=== PATIENT | female | born 1940 | race Caucasian/White ===

== ENCOUNTER 2021-08-15 13:42 | Inpatient (IN) | payer MEDICARE, BC ==
[~2021-08-15] VITALS: Ht 152.4 cm; Wt 36.7 kg
[2021-08-15] MEDS ORDERED: MAG HYDROX/AL HYDROX/SIMETH 30 ML UDC PO PRN (23:00)
[2021-08-15] MEDS ORDERED: LORAZEPAM 0.5 MG TABLET PO PRN (23:00)
[2021-08-15] MEDS ORDERED: BLOOD SUGAR DIAGNOSTIC 1 EACH STRIP IN ONE (23:00)
[2021-08-15] MEDS ORDERED: ACETAMINOPHEN 325 MG TABLET PO PRN (23:00)
[2021-08-15] MEDS ORDERED: MAGNESIUM HYDROXIDE 30 ML UDC PO PRN (23:00)
[2021-08-15 23:15] VITALS: BP 146/66
--- NOTE | 2021-08-15 23:35 | NUR ---
GPS REPRESENTATIVE GOVERNMENT RELATIONS NOTE RECEIVED PATIENT FROM [facility]. PATIENT ARRIVED AT UNIT ON 08/15/2021 2245 VIA STRETCHER WITH 2 EMT, PATIENT ADMITTED ON A 5150 HOLD FOR GRAVELY DISABLED. PER 5150 HOLD, PATIENT BELIEVES HER SIGNIFICANT OTHER/DPOA ROLANDA IS TRYING TO TAKE OVER HER LIFE. SHE HAS BEEN FLEEING THE HOUSE BECAUSE SHE DOES NOT WANT TO BE THERE WITH HIM, SHE IS PARANOID ABOUT HIS INVOLVEMENT HER CAREGIVER AND PRIMARY SUPPORT. ROLANDA HAS PROVEN TO BE SUPPORTIVE AND HER FEAR IS BASED IN PARANOID DELUSIONS. SHE CAN NOT EXPLAIN HOW SHE WOULD CARE FOR HERSELF WITHOUT HIS ASSISTANCE AND SHE CAN NOT ENGAGE IN LOGICAL DISCUSSION ABOUT HOW TO CARE FOR HERSELF. UPON FACE TO FACE ASSESSMENT, PATIENT IS A & O X 1, CONFUSED, FORGETFUL, PARANOID, DELUSIONAL, DISORGANIZED, DISORIENTED, UNCOOPERATIVE/COOPERATIVE, RESTLESS, EASILY IRRITABLE, REDIRECTABLE AND COOPERATIVE AT THIS TIME. NEEDS FREQUENT REDIRECTIONS AT ALL TIMES. HAS NO S/S OR C/O PAIN, NO S/S OF APPARENT DISTRESS, BREATHING IS UNLABORED WITH EQUAL RISE AND FALL OF THE CHEST. SATURATION AT 97% ON ROOM AIR. PATIENT DENIES SUICIDAL AND/OR HOMICIDAL IDEATIONS AT THIS TIME. AMBULATORY WITH STAND BY ASSIST ONLY, HIGH FALL RISK, UNSTEADY GAIT. HAS INCONTINENCE EPISODES. USES PULL UPS. PATIENT NOTED TO BE UNDER WEIGHT, DIETARY CONSULT ORDERED. OFFERED PO FLUIDS & TOLERATED WELL. PATIENT ADVISED OF HER HOLD, PATIENT RIGHTS BOOKLET GIVEN. THE PATIENT IS UNDER THE PSYCHIATRIC CARE OF DR LEBLANC AND MEDICAL CARE OF MADHURI WOODS. PATIENT BELONGINGS WERE INVENTORIED AND CHECKED FOR CONTRABAND, PLACED IN LOCKER. PATIENT SKIN ASSESSMENT COMPLETED, PICTURES PLACED IN CHART. PATIENT REFUSED TO SIGN CONSENT FORMS, CONFUSED AND WANTED TO REST/SLEEP. PATIENT IS UNABLE TO PROVIDE MUCH INFORMATION DUE TO CONFUSION, POOR HISTORIAN. PATIENT IS UNABLE TO PROVIDE INFORMATION ABOUT PNEUMOCOCCAL AND COVID VACCINE. PATIENT ORIENTATED TO ROOM, FLOOR, AND STAFF WITH ALL QUESTIONS ANSWERED. PATIENT EDUCATED ON THE USE OF THE CALL POZO, SIDE RAILS ARE UP X 2 FOR SAFETY, BED IS LOW AND LOCKED. BED ALARM ON. I WILL CONTINUE TO MONITOR THIS PATIENT Q15 MINUTES WITH THE HELP OF STAFF TO MAINTAIN SAFETY.
[2021-08-16] MEDS ORDERED: LIDO700A30 TP (00:38)
[2021-08-16] MEDS ORDERED: LATA2.5D15 EACHEYE (00:38)
[2021-08-16] MEDS ORDERED: AMLO-212 PO (00:38)
[2021-08-16] MEDS ORDERED: TIMO5SOL11 EACHEYE (00:38)
[2021-08-16] MEDS ORDERED: LEVO25TA7 PO (00:38)
[2021-08-16] MEDS ORDERED: ESCI5TAB PO (00:38)
[2021-08-16] MEDS ORDERED: CEPH500C2 PO (00:38)
--- NOTE | 2021-08-16 01:30 | NUR ---
RN NOTE NOTIFIED MADH[facility] WOODS TO RECONCILE HOME MEDS.
[2021-08-16] MEDS ORDERED: Z GUARD REMEDY 4 OZ OINT TP PRN (03:00)
--- NOTE | 2021-08-16 05:47 | NUR ---
RN NOTE PATIENT HAS BEEN SLEEPING WELL SINCE ADMITTED TO [facility].
--- NOTE | 2021-08-16 06:51 | NUR ---
RN NOTE PLAYGROUND EQUIPMENT ERECTOR WAS ABLE TO DRAW BLOOD FOR AM LABS. WAITING FOR LAB RESULTS
--- NOTE | 2021-08-16 07:08 | NUR ---
RN NOTE CALLED ROLANDA JIMENEZ, MANAGER [employer]/PARTNER AT [phone] AND INFORMED HIM ABOUT PATIENT'S ADMISSION AT [facility] UNIT AND PROVIDED UNIT PHONE NUMBER.
[2021-08-16 07:55] LABS: ALBUMIN 3.1 g/dL (3.4-5.0); BILIRUBIN,TOTAL 0.5 mg/dL (0.2-1.0); CALCIUM, SERUM 8.6 mg/dL (8.5-10.1); CREATININE 0.8 mg/dL (0.6-1.3); POTASSIUM 4.2 mmol/L (3.5-5.1); TOTAL PROTEIN, SERUM 5.8 g/dL (6.4-8.2)
[2021-08-16 08:00] VITALS: BP 162/92
[2021-08-16 08:16] LABS: CHOLESTEROL 176 mg/dL (<200); HDL CHOLESTEROL 63 mg/dL (40-60); LDL 96 mg/dL (0-99); TRIGLYCERIDES 51 mg/dL (30-150)
[2021-08-16] MEDS: Z GUARD REMEDY 2 OZ OINT TP SCH (09:38)
--- NOTE | 2021-08-16 10:00 | NUR ---
PSYCHIATRIST AND MEDICAL DOCTOR AWARE OF ADMISSION.
--- NOTE | 2021-08-16 10:22 | NUR ---
CHEL Initial Discharge: Patient currently lives at home [address] [place] [address]; ([phone]). Patient lives with her significant other Giovanny ([phone]). Patient would want to go home upon discharge. CHEL will work with the MD and treatment team to coordinate appropriate discharge.
--- NOTE | 2021-08-16 10:23 | NUR ---
Treatment Plan: Pt was suspicious and refused to sign treatment plan.
--- NOTE | 2021-08-16 11:32 | NUR ---
CHEL Family Contact: CHEL contacted pt's significant other Giovanny ([phone]) and attempted to gather collateral. CHEL left a voicemail.
--- NOTE | 2021-08-16 11:33 | NUR ---
CHEL Family Contact: CHEL contacted pt's significant other Giovanny ([phone]) who is the DPOA and paperworks are in the chart. Giovanny stated that at this time he is unable to take care of pt at home and stated that pt will need a nursing facility.
[2021-08-16] MEDS: ENSURE ENLIVE 237 ML LIQUID (VANILLA) PO SCH ×2 (11:34→16:59)
[2021-08-16] MEDS: AMLODIPINE BESYLATE 5 MG TABLET PO SCH (12:07)
[2021-08-16 16:00] VITALS: BP 95/54
[2021-08-16] MEDS: CEPHALEXIN MONOHYDRATE 500 MG CAPSULE PO SCH (16:59)
[2021-08-16] MEDS: TIMOLOL 0.5% SOLN OPHTH 5 ML BOTTLE EACHEYE SCH (17:35)
[2021-08-16] MEDS: LATANOPROST EYE DROP 0.005% 2.5 ML BOTTLE EACHEYE SCH (17:56)
[2021-08-16 20:00] VITALS: BP 128/67
[2021-08-16] MEDS: QUETIAPINE FUMARATE 25 MG TABLET PO SCH (21:00)
[2021-08-16] MEDS: LIDOCAINE 5% (PATCH) 1 EA PATCH TP SCH (22:00)
[2021-08-17] MEDS: TEMAZEPAM 7.5 MG CAPSULE PO PRN ×2 (01:04→21:19)
[2021-08-17] MEDS: LEVOTHYROXINE SODIUM 25 MCG TABLET PO SCH (07:30)
[2021-08-17 08:00] VITALS: BP 149/96
[2021-08-17] MEDS: CEPHALEXIN MONOHYDRATE 500 MG CAPSULE PO SCH ×3 (08:44→17:56)
[2021-08-17] MEDS: AMLODIPINE BESYLATE 5 MG TABLET PO SCH (08:45)
[2021-08-17] MEDS: ESCITALOPRAM OXALATE (10 MG) 10 MG TABLET PO SCH (08:46)
[2021-08-17] MEDS: QUETIAPINE FUMARATE 25 MG TABLET PO SCH ×3 (08:47→21:18)
[2021-08-17] MEDS: ENSURE ENLIVE 237 ML LIQUID (VANILLA) PO SCH ×2 (08:48→17:56)
[2021-08-17] MEDS: TIMOLOL 0.5% SOLN OPHTH 5 ML BOTTLE EACHEYE SCH ×3 (08:48→17:58)
[2021-08-17] MEDS: Z GUARD REMEDY 2 OZ OINT TP SCH (08:49)
[2021-08-17] MEDS: LIDOCAINE 5% (PATCH) 1 EA PATCH TP SCH ×3 (08:55→21:18)
[2021-08-17 16:00] VITALS: BP 113/58
[2021-08-17] MEDS: LATANOPROST EYE DROP 0.005% 2.5 ML BOTTLE EACHEYE SCH (18:00)
--- NOTE | 2021-08-17 19:30 | NUR ---
RN NOTES RECEIVED PT FROM AM SHIFT RN FOR HARMONY. PT IN NO ACUTE DISTRESS AT THIS TIME. NO SOB NOTED. PATIENT'S BREATHING IS EVEN AND UNLABORED. SAFETY PRECAUTIONS IN PLACE. BED IN LOW LOCKED POSITION. WILL CONTINUE TO MONITOR Q15MIN ROUNDS FOR SAFETY AND BEHAVIOR.
[2021-08-17 20:00] VITALS: BP 110/66
--- NOTE | 2021-08-18 06:57 | NUR ---
RN NOTES ENDORSED PT IN STABLE CONDITION TO AM SHIFT RN FOR HARMONY.
[2021-08-18] MEDS: LEVOTHYROXINE SODIUM 25 MCG TABLET PO SCH ×2 (07:30→08:55)
[2021-08-18 08:00] VITALS: BP 101/63
[2021-08-18] MEDS: TIMOLOL 0.5% SOLN OPHTH 5 ML BOTTLE EACHEYE SCH ×2 (08:55→16:56)
[2021-08-18] MEDS: QUETIAPINE FUMARATE 25 MG TABLET PO SCH ×3 (08:55→21:16)
[2021-08-18] MEDS: AMLODIPINE BESYLATE 5 MG TABLET PO SCH ×2 (08:56→09:00)
[2021-08-18] MEDS: CEPHALEXIN MONOHYDRATE 500 MG CAPSULE PO SCH ×3 (08:57→16:56)
[2021-08-18] MEDS: ESCITALOPRAM OXALATE (10 MG) 10 MG TABLET PO SCH ×2 (08:57→09:00)
[2021-08-18] MEDS ORDERED: LIDOCAINE 5% (PATCH) 1 EA PATCH TP SCH (09:00)
[2021-08-18] MEDS: ENSURE ENLIVE 237 ML LIQUID (VANILLA) PO SCH ×2 (09:02→16:58)
--- NOTE | 2021-08-18 09:06 | NUR ---
SNF Referral: CHEL sent clinicals to [facility] to Jose Alfredo betancourt ([phone]). SW sent clinicals, progress notes, medication list, and laboratory.
[2021-08-18] MEDS: Z GUARD REMEDY 2 OZ OINT TP SCH (09:50)
--- NOTE | 2021-08-18 09:56 | NUR ---
SNF Contact: SW received a call from [facility] from Anh saleem who stated that pt is accepted ([phone]).
--- NOTE | 2021-08-18 10:18 | NUR ---
CHEL Family Contact: CHEL contacted pt's significant other Giovanny ([phone]) and stated pt is accepted at [facility] and he was agreeable with this.
[2021-08-18 16:00] VITALS: BP 95/59
[2021-08-18] MEDS: LATANOPROST EYE DROP 0.005% 2.5 ML BOTTLE EACHEYE SCH (18:08)
[2021-08-18 20:00] VITALS: BP 100/81
[2021-08-19 08:00] VITALS: BP 108/55
[2021-08-19] MEDS: ENSURE ENLIVE 237 ML LIQUID (VANILLA) PO SCH ×2 (08:24→17:47)
[2021-08-19] MEDS: LIDOCAINE 5% (PATCH) 1 EA PATCH TP SCH (08:26)
[2021-08-19] MEDS: QUETIAPINE FUMARATE 25 MG TABLET PO SCH ×2 (08:27→20:56)
[2021-08-19] MEDS: AMLODIPINE BESYLATE 5 MG TABLET PO SCH (08:27)
[2021-08-19] MEDS: CEPHALEXIN MONOHYDRATE 500 MG CAPSULE PO SCH ×2 (08:27→17:47)
[2021-08-19] MEDS: ESCITALOPRAM OXALATE (10 MG) 10 MG TABLET PO SCH (08:27)
[2021-08-19] MEDS: LEVOTHYROXINE SODIUM 25 MCG TABLET PO SCH (08:27)
[2021-08-19] MEDS: TIMOLOL 0.5% SOLN OPHTH 5 ML BOTTLE EACHEYE SCH ×2 (08:28→17:47)
[2021-08-19] MEDS: Z GUARD REMEDY 2 OZ OINT TP SCH (08:28)
[2021-08-19 15:44] VITALS: BP 136/67
[2021-08-19] MEDS: LATANOPROST EYE DROP 0.005% 2.5 ML BOTTLE EACHEYE SCH (18:26)
--- NOTE | 2021-08-19 19:15 | NUR ---
AUTOMATIC CORN GRINDER OPERATOR NOTES: RECEIVED PT SITTING IN [place] CHAIR BY MARIELA ANDREWS. A/O X2. NO S/S OF ACUTE DISTRESS. ON ROOM. BREATHING EVEN AND UNLABORED WITH EQUAL RISE AND FALL OF THE CHEST. NO COMPLAINTS OF PAIN. RESPONDS TO INTERNAL STIMULI. ANXIOUS AND COOPERATIVE. PT DENIES SUICIDE AND HOMICIDAL IDEATIONS AT THIS TIME. ALL SAFETY MEASURES IN PLACE. WILL CONTINUE TO MONITOR Q15 MINS WITH THE HELP OF STAFF TO MAINTAIN SAFETY.
[2021-08-19 20:51] VITALS: BP 117/54
--- NOTE | 2021-08-20 04:45 | NUR ---
weld inspector notes: given patient prn ativan 0.5 mg po d/t anxiety/agitation. effective. patient calm and sleeping at this time.
[2021-08-20 08:00] VITALS: BP 131/76
[2021-08-20] MEDS: LIDOCAINE 5% (PATCH) 1 EA PATCH TP SCH (08:33)
[2021-08-20] MEDS: ENSURE ENLIVE 237 ML LIQUID (VANILLA) PO SCH ×2 (08:35→16:27)
[2021-08-20] MEDS: LEVOTHYROXINE SODIUM 25 MCG TABLET PO SCH (08:35)
[2021-08-20] MEDS: ESCITALOPRAM OXALATE (10 MG) 10 MG TABLET PO SCH (09:44)
[2021-08-20] MEDS: QUETIAPINE FUMARATE 25 MG TABLET PO SCH ×2 (09:44→20:51)
[2021-08-20] MEDS: AMLODIPINE BESYLATE 5 MG TABLET PO SCH (09:45)
[2021-08-20] MEDS: Z GUARD REMEDY 2 OZ OINT TP SCH (09:50)
[2021-08-20] MEDS: TIMOLOL 0.5% SOLN OPHTH 5 ML BOTTLE EACHEYE SCH ×2 (09:50→16:26)
[2021-08-20] MEDS: CEPHALEXIN MONOHYDRATE 500 MG CAPSULE PO SCH ×2 (09:50→16:24)
[2021-08-20 16:00] VITALS: BP_SYST 121; BP_SYST 141; BP_DIAS 65
[2021-08-20] MEDS: LATANOPROST EYE DROP 0.005% 2.5 ML BOTTLE EACHEYE SCH (17:45)
[2021-08-20 19:51] VITALS: BP 100/52
[2021-08-20 19:55] VITALS: BP 100/52
--- NOTE | 2021-08-21 07:02 | NUR ---
RN NOTE PATIENT SLEPT WELL AT NIGHT. NO BEHAVIOR EPISODE NOTED. MED COMPLAINT AT NIGHT.
[2021-08-21 08:00] VITALS: BP 150/82
[2021-08-21] MEDS: Z GUARD REMEDY 2 OZ OINT TP SCH (09:00)
[2021-08-21] MEDS: TIMOLOL 0.5% SOLN OPHTH 5 ML BOTTLE EACHEYE SCH ×2 (09:00→16:56)
[2021-08-21] MEDS: ENSURE ENLIVE 237 ML LIQUID (VANILLA) PO SCH ×2 (09:00→16:56)
[2021-08-21] MEDS: CEPHALEXIN MONOHYDRATE 500 MG CAPSULE PO SCH (09:03)
[2021-08-21] MEDS: ESCITALOPRAM OXALATE (10 MG) 10 MG TABLET PO SCH (09:03)
[2021-08-21] MEDS: LEVOTHYROXINE SODIUM 25 MCG TABLET PO SCH (09:03)
[2021-08-21] MEDS: QUETIAPINE FUMARATE 25 MG TABLET PO SCH ×2 (09:03→21:28)
[2021-08-21] MEDS: AMLODIPINE BESYLATE 5 MG TABLET PO SCH (09:04)
[2021-08-21] MEDS: LIDOCAINE 5% (PATCH) 1 EA PATCH TP SCH (09:19)
[2021-08-21 16:00] VITALS: BP 116/75
[2021-08-21] MEDS: LATANOPROST EYE DROP 0.005% 2.5 ML BOTTLE EACHEYE SCH (17:15)
[2021-08-21 19:58] VITALS: BP 127/70
[2021-08-21] MEDS: TEMAZEPAM 7.5 MG CAPSULE PO PRN (21:58)
--- NOTE | 2021-08-21 22:02 | NUR ---
GPS RN NOTES: RESTORIL 7.5MG/1CAP GIVEN PO AT 2158. WILL CONTINUE TO MONITOR
--- NOTE | 2021-08-22 06:59 | NUR ---
GPS RN CLOSING NOTES: PATIENT IS CURRENTLY SLEEPING. PATIENT SLEPT 7HRS THIS SHIFT. WEEKLY SKIN ASSESSMENT DONE, PICTURES TAKEN AND PLACED IN PATIENT CHART, NO NEW SKIN ISSUES NOTED. NO S/S OF DISTRESS. RESPIRATION EVEN AND UNLABORED WITH EQUAL RISE AND FALL OF THE CHEST, ON ROOM AIR. ALL PATIENT CARE NEEDS HAVE BEEN MET ANTICIPATED. BED IN LOWEST POSITION AND LOCKED, SIDE RAILS UP X2 FOR SAFETY. WILL CONTINUE TO MONITOR AND ENDORSE TO AM SHIFT.
[2021-08-22 08:00] VITALS: BP 157/71
[2021-08-22] MEDS: LIDOCAINE 5% (PATCH) 1 EA PATCH TP SCH (08:00)
[2021-08-22] MEDS: ENSURE ENLIVE 237 ML LIQUID (VANILLA) PO SCH ×2 (08:18→16:59)
[2021-08-22] MEDS: LEVOTHYROXINE SODIUM 25 MCG TABLET PO SCH (08:19)
[2021-08-22] MEDS: ESCITALOPRAM OXALATE (10 MG) 10 MG TABLET PO SCH (08:19)
[2021-08-22] MEDS: TIMOLOL 0.5% SOLN OPHTH 5 ML BOTTLE EACHEYE SCH ×2 (08:20→16:53)
[2021-08-22] MEDS: QUETIAPINE FUMARATE 25 MG TABLET PO SCH ×2 (08:20→21:16)
[2021-08-22] MEDS: AMLODIPINE BESYLATE 5 MG TABLET PO SCH (08:20)
[2021-08-22] MEDS: Z GUARD REMEDY 2 OZ OINT TP SCH (08:29)
--- NOTE | 2021-08-22 11:37 | NUR ---
Court Hearing: Patient's court hearing for [id number] was today and it was upheld for GD.
--- NOTE | 2021-08-22 12:37 | NUR ---
CHEL Family Contact: CHEL contacted pt's significant other Giovanny ([phone]) and updated on patient's well-being.
--- NOTE | 2021-08-22 14:27 | NUR ---
Coordination of Care: Patient will follow up with ([facility]) Dr. Magdalena Reyes located at [facility] [address] [place] [address]; ([phone]) on September 09 at 11:15AM. Patient will follow up with Dr. Acuña (Psychiatrist) located at [facility] in [address] [place] [address]; ([phone]) on September 07 at 12PM.
--- NOTE | 2021-08-22 14:32 | NUR ---
Individual Therapy: SW attempted to conduct therapy and pt was unable to have a proper conversation due to dementia and appeared to be confused.
[2021-08-22 16:00] VITALS: BP 123/83
[2021-08-22] MEDS: LATANOPROST EYE DROP 0.005% 2.5 ML BOTTLE EACHEYE SCH (17:00)
[2021-08-22 20:06] VITALS: BP 102/62
[2021-08-22] MEDS: TEMAZEPAM 7.5 MG CAPSULE PO PRN (21:53)
--- NOTE | 2021-08-22 21:57 | NUR ---
GPS RN NOTES: PATIENT REQUESTED FOR SLEEP MEDICATION. RESTORIL 7.5MG/1CAP GIVEN PO AT 2153.
--- NOTE | 2021-08-23 06:37 | NUR ---
GPS RN CLOSING NOTES: PATIENT IS SLEEPING COMFORTABLY IN BED. PATIENT SLEPT 8HRS THIS SHIFT. PATIENT CLEANED AND DIAPER CHANGED. NO S/S OF DISTRESS. RESPIRATION EVEN AND UNLABORED WITH EQUAL RISE AND FALL OF THE CHEST, ON ROOM AIR. ALL PATIENT CARE NEEDS HAVE BEEN MET ANTICIPATED. BED IN LOWEST POSITION AND LOCKED, SIDE RAILS UP X2 FOR SAFETY. WILL CONTINUE TO MONITOR AND ENDORSE TO AM SHIFT.
[2021-08-23] MEDS: LEVOTHYROXINE SODIUM 25 MCG TABLET PO SCH (07:31)
[2021-08-23] MEDS: ENSURE ENLIVE 237 ML LIQUID (VANILLA) PO SCH ×2 (07:32→17:17)
[2021-08-23] MEDS: LIDOCAINE 5% (PATCH) 1 EA PATCH TP SCH (07:32)
[2021-08-23 08:00] VITALS: BP 145/78
[2021-08-23] MEDS: Z GUARD REMEDY 2 OZ OINT TP SCH (09:11)
[2021-08-23] MEDS: QUETIAPINE FUMARATE 25 MG TABLET PO SCH ×2 (09:12→20:55)
[2021-08-23] MEDS: ESCITALOPRAM OXALATE (10 MG) 10 MG TABLET PO SCH (09:12)
[2021-08-23] MEDS: AMLODIPINE BESYLATE 5 MG TABLET PO SCH (09:12)
[2021-08-23] MEDS: TIMOLOL 0.5% SOLN OPHTH 5 ML BOTTLE EACHEYE SCH ×2 (09:14→17:35)
[2021-08-23 16:00] VITALS: BP 116/63
[2021-08-23] MEDS: LATANOPROST EYE DROP 0.005% 2.5 ML BOTTLE EACHEYE SCH (18:34)
[2021-08-23 20:00] VITALS: BP 118/59
[2021-08-23] MEDS: TEMAZEPAM 7.5 MG CAPSULE PO PRN (21:38)
--- NOTE | 2021-08-23 21:42 | NUR ---
GPS RN NOTES: PATIENT REQUESTED FOR SLEEP MEDICATION. RESTORIL 7.5MG/1CAP GIVEN PO AT 2138.
[2021-08-24] MEDS: LEVOTHYROXINE SODIUM 25 MCG TABLET PO SCH (07:49)
[2021-08-24] MEDS: LIDOCAINE 5% (PATCH) 1 EA PATCH TP SCH (07:50)
[2021-08-24 08:00] VITALS: BP 143/90
[2021-08-24] MEDS: TIMOLOL 0.5% SOLN OPHTH 5 ML BOTTLE EACHEYE SCH ×2 (08:06→17:02)
[2021-08-24] MEDS: ENSURE ENLIVE 237 ML LIQUID (VANILLA) PO SCH ×2 (08:06→17:20)
[2021-08-24] MEDS: QUETIAPINE FUMARATE 25 MG TABLET PO SCH ×2 (08:07→20:43)
[2021-08-24] MEDS: ESCITALOPRAM OXALATE (10 MG) 10 MG TABLET PO SCH (08:07)
[2021-08-24] MEDS: Z GUARD REMEDY 2 OZ OINT TP SCH (08:08)
[2021-08-24] MEDS: AMLODIPINE BESYLATE 5 MG TABLET PO SCH (08:17)
--- NOTE | 2021-08-24 08:17 | NUR ---
RN-CO: PT REFUSED AMLODIPINE DESPITE OF THE ENCOURAGEMENT TO TAKE IT. SHE STATED " IT MAKES ME DIZZY."
[2021-08-24 16:00] VITALS: BP 144/61
[2021-08-24] MEDS: LATANOPROST EYE DROP 0.005% 2.5 ML BOTTLE EACHEYE SCH (17:02)
[2021-08-24 21:42] VITALS: BP 156/75
[2021-08-25 08:00] VITALS: BP_SYST 160; BP_SYST 163; BP_DIAS 98
[2021-08-25] MEDS: ESCITALOPRAM OXALATE (10 MG) 10 MG TABLET PO SCH (08:54)
[2021-08-25] MEDS: QUETIAPINE FUMARATE 25 MG TABLET PO SCH ×2 (08:54→21:19)
[2021-08-25] MEDS: LEVOTHYROXINE SODIUM 25 MCG TABLET PO SCH (08:54)
[2021-08-25] MEDS: ENSURE ENLIVE 237 ML LIQUID (VANILLA) PO SCH ×2 (08:55→18:08)
[2021-08-25] MEDS: LIDOCAINE 5% (PATCH) 1 EA PATCH TP SCH (08:55)
[2021-08-25] MEDS: AMLODIPINE BESYLATE 5 MG TABLET PO SCH (08:55)
[2021-08-25] MEDS: Z GUARD REMEDY 2 OZ OINT TP SCH (09:01)
[2021-08-25] MEDS: TIMOLOL 0.5% SOLN OPHTH 5 ML BOTTLE EACHEYE SCH ×2 (09:01→18:06)
[2021-08-25 12:15] LABS: CALCIUM, SERUM 8.7 mg/dL (8.5-10.1); CREATININE 0.7 mg/dL (0.6-1.3); POTASSIUM 3.9 mmol/L (3.5-5.1)
[2021-08-25 16:00] VITALS: BP 126/65
[2021-08-25] MEDS: LATANOPROST EYE DROP 0.005% 2.5 ML BOTTLE EACHEYE SCH (18:07)
--- NOTE | 2021-08-25 21:00 | NUR ---
GPS RN NOTES DUE SEROQUEL 25MG PO GIVEN SCHEDULED,TAKEN WELL.
--- NOTE | 2021-08-26 01:00 | NUR ---
GPS RN NOTES OFFERED SLEEPING PILL BUT REFUSED.
[2021-08-26 08:00] VITALS: BP 156/77
[2021-08-26] MEDS: LEVOTHYROXINE SODIUM 25 MCG TABLET PO SCH (08:22)
[2021-08-26] MEDS: ENSURE ENLIVE 237 ML LIQUID (VANILLA) PO SCH ×2 (08:22→17:14)
[2021-08-26] MEDS: LIDOCAINE 5% (PATCH) 1 EA PATCH TP SCH (08:22)
[2021-08-26] MEDS: ESCITALOPRAM OXALATE (10 MG) 10 MG TABLET PO SCH (09:45)
[2021-08-26] MEDS: QUETIAPINE FUMARATE 25 MG TABLET PO SCH ×2 (09:45→17:43)
[2021-08-26] MEDS: AMLODIPINE BESYLATE 5 MG TABLET PO SCH (09:45)
[2021-08-26] MEDS: TIMOLOL 0.5% SOLN OPHTH 5 ML BOTTLE EACHEYE SCH ×2 (09:47→17:12)
[2021-08-26] MEDS: Z GUARD REMEDY 2 OZ OINT TP SCH (09:47)
--- NOTE | 2021-08-26 11:04 | NUR ---
CHEL Family Contact: CHEL contacted pt's significant other Giovanny ([phone]) and notified of pt's discharge to [facility] on 08/29. He was agreeable.
[2021-08-26 16:00] VITALS: BP 134/73
[2021-08-26] MEDS: LATANOPROST EYE DROP 0.005% 2.5 ML BOTTLE EACHEYE SCH (17:12)
[2021-08-26 19:44] VITALS: BP 111/71
[2021-08-26 19:53] VITALS: BP 111/71
[2021-08-27 08:00] VITALS: BP 153/86
[2021-08-27] MEDS: ENSURE ENLIVE 237 ML LIQUID (VANILLA) PO SCH ×2 (08:32→16:31)
[2021-08-27] MEDS: LIDOCAINE 5% (PATCH) 1 EA PATCH TP SCH (08:34)
[2021-08-27] MEDS: ESCITALOPRAM OXALATE (10 MG) 10 MG TABLET PO SCH (08:35)
[2021-08-27] MEDS: QUETIAPINE FUMARATE 25 MG TABLET PO SCH ×2 (08:35→16:51)
[2021-08-27] MEDS: LEVOTHYROXINE SODIUM 25 MCG TABLET PO SCH (08:35)
[2021-08-27] MEDS: AMLODIPINE BESYLATE 5 MG TABLET PO SCH (08:35)
[2021-08-27] MEDS: Z GUARD REMEDY 2 OZ OINT TP SCH (08:36)
[2021-08-27] MEDS: TIMOLOL 0.5% SOLN OPHTH 5 ML BOTTLE EACHEYE SCH ×2 (08:36→16:34)
[2021-08-27 16:00] VITALS: BP 122/59
[2021-08-27] MEDS: LATANOPROST EYE DROP 0.005% 2.5 ML BOTTLE EACHEYE SCH (16:51)
[2021-08-27 20:09] VITALS: BP 123/76
[2021-08-27] MEDS: TEMAZEPAM 7.5 MG CAPSULE PO PRN (21:42)
[2021-08-28] MEDS: ENSURE ENLIVE 237 ML LIQUID (VANILLA) PO SCH ×2 (07:56→17:34)
[2021-08-28] MEDS: TIMOLOL 0.5% SOLN OPHTH 5 ML BOTTLE EACHEYE SCH ×2 (07:59→17:34)
[2021-08-28 08:00] VITALS: BP 145/79
[2021-08-28] MEDS: LIDOCAINE 5% (PATCH) 1 EA PATCH TP SCH (08:05)
[2021-08-28] MEDS: AMLODIPINE BESYLATE 5 MG TABLET PO SCH (08:06)
[2021-08-28] MEDS: QUETIAPINE FUMARATE 25 MG TABLET PO SCH ×2 (08:06→17:35)
[2021-08-28] MEDS: LEVOTHYROXINE SODIUM 25 MCG TABLET PO SCH (08:06)
[2021-08-28] MEDS: ESCITALOPRAM OXALATE (10 MG) 10 MG TABLET PO SCH (08:06)
[2021-08-28] MEDS: Z GUARD REMEDY 2 OZ OINT TP SCH (08:07)
[2021-08-28 16:00] VITALS: BP 137/75
[2021-08-28] MEDS: LATANOPROST EYE DROP 0.005% 2.5 ML BOTTLE EACHEYE SCH (17:34)
[2021-08-28 20:59] VITALS: BP 130/63
[2021-08-28] MEDS: TEMAZEPAM 7.5 MG CAPSULE PO PRN (22:13)
--- NOTE | 2021-08-28 22:16 | NUR ---
GPS RN NOTES: RESTORIL 7.5MG/1CAP GIVEN AT 2213.
--- NOTE | 2021-08-29 07:51 | NUR ---
SW Discharge Note: Patient will be discharged to a locked correction facility to [facility] [address] [place] [address]; ([phone]). Please arrange ambulance transportation. Eye Technician spoke with Anh, Mid Level Practitioner at [facility]; ([phone]), who stated patient will be accepted at facility today. Patient is alert and oriented x1, and is not able to plan for self-care at this time, but is willing to accept care provided for her at the facility. Patient denies any suicidal or homicidal ideations. Patient is aware and agreeable with discharge plans. Patients BRIANNA Baltazar ([phone]) is aware and agreeable of discharge. Patient will continue to follow-up with her (Psychiatrist) Dr. Bryant located at [address] [place] [address]; ([phone]) and (Bindery Production Manager) Dr. Batista [address] [facility] [address], [place] [address]; ([phone]). Patient presents with euthymic mood and congruent affect.
[2021-08-29 08:00] VITALS: BP 150/71
[2021-08-29] MEDS: LIDOCAINE 5% (PATCH) 1 EA PATCH TP SCH (08:00)
[2021-08-29] MEDS: ENSURE ENLIVE 237 ML LIQUID (VANILLA) PO SCH (08:07)
[2021-08-29 08:16] VITALS: BP 150/71
[2021-08-29] MEDS: LEVOTHYROXINE SODIUM 25 MCG TABLET PO SCH (08:16)
[2021-08-29] MEDS: AMLODIPINE BESYLATE 5 MG TABLET PO SCH (08:16)
[2021-08-29] MEDS: QUETIAPINE FUMARATE 25 MG TABLET PO SCH (08:17)
[2021-08-29] MEDS: ESCITALOPRAM OXALATE (10 MG) 10 MG TABLET PO SCH (08:17)
[2021-08-29] MEDS: TIMOLOL 0.5% SOLN OPHTH 5 ML BOTTLE EACHEYE SCH (08:17)
[2021-08-29] MEDS: Z GUARD REMEDY 2 OZ OINT TP SCH (08:22)
--- NOTE | 2021-08-29 14:15 | NUR ---
Patient discharged to a locked halfway facility to [facility] [address] [facility], [place] [address]; ([phone])via ambulance transportation. Pt exited unit at 1400. vPatient is alert and oriented x1, and is not able to plan for self-care at this time, but is willing to accept care provided for her at the facility. Patient denies any suicidal or homicidal ideations. Pt denies A/V hallucinations at this time. Med recon finished, Exit Care(After Care) signed and completed. Instructions given to facility. Pics in chart. All valuables and belongings returned and signed for. Report given to Dixie BARTH. Patient is aware and agreeable with discharge plans. Patients BRIANNA Baltazar ([phone]) is aware and agreeable of discharge. Patient will continue to follow-up with her (Psychiatrist) Dr. Bryant located at [address] [place] [address]; ([phone]) and (Console Manager) Dr. Batista [address] [facility] [address], [place] [address]; ([phone]). Patient presents with euthymic mood and congruent affect.
== END 2021-08-29 14:00 | DRG 881 ==
LOC: GPS 22:36
PROVIDERS: ADMIT Nurse Practitioner Psychiatric/Mental Health; ATTEND Registered Nurse
DX: F32.9 Major depressive disorder, single episode, unspecified (principal); N39.0 Urinary tract infection, site not specified; F29 Unspecified psychosis not due to a substance or known physiological condition; F41.9 Anxiety disorder, unspecified; Z73.6 Limitation of activities due to disability; F02.80 Dementia in other diseases classified elsewhere, unspecified severity, without behavioral disturbance, psychotic disturbance, mood disturbance, and anxiety; G30.9 Alzheimer's disease, unspecified; E03.9 Hypothyroidism, unspecified; I10 Essential (primary) hypertension; M81.0 Age-related osteoporosis without current pathological fracture; C50.919 Malignant neoplasm of unspecified site of unspecified female breast; Z90.10 Acquired absence of unspecified breast and nipple; Z79.899 Other long term (current) drug therapy; R53.1 Weakness; B96.89 Other specified bacterial agents as the cause of diseases classified elsewhere
CPT/HCPCS: 36415; 80048-TC; 80053-TC; 80061-TC; 82962-TC; 84443-TC; 87081-TC; 97116-TC